=== PATIENT | male | born 1995 | race Caucasian/White ===

== ENCOUNTER 2017-09-10 02:33 | Emergency (ER) | payer SELFPAY ==
[2017-09-10 03:35] LABS: ABSOLUTE BASOPHILS # (AUTO) 0.1 10^3/uL (0.0-0.2); ABSOLUTE EOSINOPHILS # (AUTO) 0.1 10^3/uL (0.0-0.6); ABSOLUTE MONOCYTES (AUTO) 0.9 10^3/uL (0.1-1.4); ABSOLUTE NEUT (AUTO) 16.1 10^3/uL (1.7-8.2); BASOPHILS % (AUTO) 0.4 % (0-2); EOSINOPHILS % (AUTO) 0.6 % (0-6); HEMATOCRIT 39.8 % (37.9-51.0); LYMPHOCYTES % (AUTO) 5.5 % (13-45); MEAN CORPUSCULAR HEMOGLOBIN 31.1 pg (27.0-33.4); MEAN CORPUSCULAR HGB CONC 35.2 g/dL (32.0-36.0); MEAN CORPUSCULAR VOLUME 88 fl (80-97); PLATELET COUNT 170 10^3/uL (150-450); RED BLOOD COUNT 4.51 10^6/uL (4.35-5.55); RED CELL DISTRIBUTION WIDTH 13.7 % (11.5-14.0); SEGMENTED NEUTROPHILS % (AUTO) 88.5 % (42-78); TOTAL CELLS COUNTED % (AUTO) 100 %; WHITE BLOOD COUNT 18.1 10^3/uL (4.0-10.5)
[2017-09-10] MEDS ORDERED: NORMAL SALINE 1000 ML 1,000 ML IV ONE ×2 (03:48)
[2017-09-10 03:53] LABS: ALANINE AMINOTRANSFERASE 28 U/L (21-72); ALBUMIN 4.6 g/dL (3.5-5.0); ALKALINE PHOSPHATASE 56 U/L (38-126); ANION GAP 11 (5-19); ASPARTATE AMINO TRANSFERASE 22 U/L (17-59); BILIRUBIN,DIRECT 0.3 mg/dL (0.0-0.4); BILIRUBIN,TOTAL 0.4 mg/dL (0.2-1.3); BLOOD UREA NITROGEN 11 mg/dL (7-20); CALCIUM 9.6 mg/dL (8.4-10.2); CARBON DIOXIDE 28 mmol/L (22-30); CHLORIDE 106 mmol/L (98-107); GLUCOSE 166 mg/dL (75-110); POTASSIUM 3.2 mmol/L (3.6-5.0); SODIUM 145.1 mmol/L (137-145); TOTAL PROTEIN 7.4 g/dL (6.3-8.2)
[2017-09-10 03:56] LABS: ACETAMINOPHEN < 10 ug/mL (10-30); ALCOHOL < 10 mg/dL (NONE DETECTED); SALICYLATE < 1.0 mg/dL (2.0-20.0)
[2017-09-10 05:00] LABS: APPEARANCE,URINE SLIGHTLY-CLOUDY; BILIRUBIN,URINE NEGATIVE (NEGATIVE); COLOR,URINE YELLOW; GLUCOSE, URINE NEGATIVE (NEGATIVE); KETONES,URINE NEGATIVE (NEGATIVE); LEUKOCYTE ESTERASE,URINE NEGATIVE (NEGATIVE); NITRITE,URINE NEGATIVE (NEGATIVE); PROTEIN,URINE 30 mg/dL (NEGATIVE); URINE SPECIFIC GRAVITY 1.018
[2017-09-10 05:07] LABS: URINE AMPHETAMINES SCREEN NEGATIVE; URINE BARBITURATES SCREEN NEGATIVE; URINE BENZODIAZEPINES SCREEN NEGATIVE; URINE COCAINE SCREEN NEGATIVE; URINE MARIJUANA (THC) SCREEN UNCONFIRMED POSITIVE; URINE METHADONE SCREEN NEGATIVE; URINE PHENCYCLIDINE SCREEN UNCONFIRMED POSITIVE
--- NOTE | 2017-09-10 05:18 | ER Document Report ---
ED General - General TRAVEL OUTSIDE OF THE [place] IN LAST 30 DAYS: No - HPI Patient complains to provider of: Suicide ideation polysubstance abuse <RICARDO AIKEN - Last Filed: 09/10/17 06:02> <THOMAS MCKENNA A - Last Filed: 09/10/17 17:16> - General Chief Complaint: Psych Problem Stated Complaint: PSYCH PROBLEM Time Seen by Provider: 09/10/17 03:21 - HPI Notes: According to the mother at bedside patient has a history of polysubstance abuse and also has making suicidal statements. Mother states that the patient takes multiple illicit substance from PCP heroin opiates and has been looking online researching drugs that are not found on drug screens mother states that she regularly drug screens the patient and the patient's girlfriend. Patient upon initial evaluation was seen rolling to our psychiatric area awake at this time at bedside patient is awake in the painful stimuli however has some intermittent smiles. Mother denies any previous psychiatric evaluation denies any other past medical issues (RICARDO AIKEN) - Related Data Allergies/Adverse Reactions: amoxicillin [Amoxicillin] Allergy (Verified 07/31/12 12:32) Hives Penicillins Allergy (Verified 05/03/13 14:59) Past Medical History - Social History Family History: Reviewed & Not Pertinent Psychiatric Medical History: Reports: Hx Attention Deficit Hyperactivity Disorder - Immunizations Hx Diphtheria, Pertussis, Tetanus Vaccination: Yes <RICARDO AIKEN - Last Filed: 09/10/17 06:02> - Social History Smoking Status: Current Some Day Smoker Family History: Reviewed & Not Pertinent <THOMAS MCKENNA A - Last Filed: 09/10/17 17:16> Review of Systems - Review of Systems -: Yes ROS unobtainable due to patient's medical condition - Intoxicated <RICARDO AIKEN - Last Filed: 09/10/17 06:02> Physical Exam - Vital signs Interpretation: Normal - General General appearance: Appears well, Alert - HEENT Head: Normocephalic, Atraumatic Eyes: Normal Conjunctiva: Normal Cornea: Normal Pupils: Pinpoint - Respiratory Respiratory status: No respiratory distress Chest status: Nontender Breath sounds: Normal Chest palpation: Normal - Cardiovascular Rhythm: Regular Heart sounds: Normal auscultation Murmur: No - Abdominal Inspection: Normal Distension: No distension Bowel sounds: Normal Tenderness: Nontender Organomegaly: No organomegaly - Back Back: Normal, Nontender - Extremities General upper extremity: Normal inspection, Nontender, Normal color, Normal ROM , Normal temperature General lower extremity: Normal inspection, Nontender, Normal color, Normal ROM , Normal temperature, Normal weight bearing. No: Annia's sign - Neurological Neuro grossly intact: Yes Cognition: Normal [place] Coma Scale Eye Opening: To Pain Winnie Coma Scale Verbal: Confused [place] Coma Scale Motor: Localizes to Pain [place] Coma Scale Total: 11 Speech: Normal Motor strength normal: LUE, RUE, LLE, RLE Sensory: Normal - Psychological Associated symptoms: Normal affect, Normal mood - Skin Skin Temperature: Warm Skin Moisture: Dry Skin Color: Normal <RICARDO AIKEN - Last Filed: 09/10/17 06:02> <THOMAS MCKENNA - Last Filed: 09/10/17 17:16> - Vital signs Vitals: Temp Pulse Resp BP Pulse Ox 98.2 F 103 H 18 138/101 H 95 09/10/17 02:43 09/10/17 02:43 09/10/17 02:43 09/10/17 02:43 09/10/17 02:43 - Neurological Notes: Gag reflex intact (RICARDO AIKEN) Course - Laboratory Result Diagrams: 09/10/17 03:12 09/10/17 03:12 <RICARDO AIKEN - Last Filed: 09/10/17 06:02> - Laboratory Result Diagrams: 09/10/17 03:12 09/10/17 03:12 <THOMAS MCKENNA A - Last Filed: 09/10/17 17:16> - Re-evaluation Re-evalutation: 09/10/17 05:16 Patient coming in for suicidal ideation and drug overdose. Patient's vital signs are stable at this time with a gag in place patient does not require any further intervention for airway protection currently waiting on patient to metabolize substances to make up to talk to psychiatric team. 09/10/17 06:02 Patient was resisting the opening up his eyes patient initially did speak his name does admit that he has been taking cough medication. Otherwise laboratory values only showed slightly low potassium. We will replace this orally once patient awakes patient otherwise at this time is cleared by psych. 09/10/17 06:11 GCS he is going to see some people is now 15 (RICARDO AIKEN) 09/10/17 17:14 Patient was evaluated by behavioral health. Will discharge to [facility]. Will write rx for Effexor 37.5mg BID and Buspar 10mg BID per psychiatrist recommendations. (THOMAS MCKENNA) - Vital Signs Vital signs: Temp Pulse Resp BP Pulse Ox 98.2 F 103 H 17 99/65 L 98 09/10/17 02:43 09/10/17 02:43 09/10/17 07:01 09/10/17 07:01 09/10/17 07:01 - Laboratory Laboratory results interpreted by me: 09/10/17 09/10/17 09/10/17 03:12 03:12 04:30 WBC 18.1 H Seg Neutrophils % 88.5 H Lymphocytes % 5.5 L Absolute Neutrophils 16.1 H Sodium 145.1 H Potassium 3.2 L Glucose 166 H Urine Protein 30 H Urine Urobilinogen 4.0 H Salicylates < 1.0 L Acetaminophen < 10 L Critical Care Note - Critical Care Note Total time excluding time spent on procedures (mins): 35 <RICARDO AIKEN - Last Filed: 09/10/17 06:02> <THOMAS MCKENNA - Last Filed: 09/10/17 17:16> - Critical Care Note Comments: Multiple evaluations for drug overdose with low GCS initially GCS now 15 ( RICARDO AIKEN) Discharge <RICARDO AIKEN - Last Filed: 09/10/17 06:02> <THOMAS MCKENNA - Last Filed: 09/10/17 17:16> - Discharge Clinical Impression: Drug overdose, Suicidal ideation, Polysubstance drug abuse Condition: Good Disposition: HOME, SELF-CARE Additional Instructions: You were seen for psychiatric consultation in the Emergency Department for suicidal ideation and substance abuse, and deemed appropriate for discharge. You are being referred to [facility] for assistance in obtaining admittance to a substance abuse detox and for mobile crisis services. You have also been referred to either [facility] or [facility] for senior living treatment and encouraged to contact them today for bed availability. Medication Recommendations: Effexor 37.5 twice per day Buspar 10 mg twice per day DEPRESSION: Your evaluation reveals that you have depression. While symptoms may be vague, they often include disturbance of sleep, fatigue, loss of appetite, and general loss of interest in life. While depression may be a side effect of drugs, or a reaction to a major change in your life, many cases have no known cause. If depression is acute, and related to a major loss in your life, you can expect it to clear completely with time. If you have been depressed a long time , are prone to repeated bouts of depression or low mood, or have been thinking of suicide, get help. Depression can be treated with anti-depressant medication and counselling. Long-term depression will often take a few weeks to clear, even with appropriate medication. Follow-up care is important. SUICIDAL IDEATION: Suicidal ideation is a common medical term for thoughts about suicide, which may be as detailed as a formulated plan, without the suicidal act itself. Although most people who undergo suicidal ideation do not commit suicide, some go on to make suicide attempts. The range of suicidal ideation varies greatly from fleeting to detailed planning, role playing, and unsuccessful attempts. While thoughts about suicide are common, most people do not carry out serious actions to commit suicide. Based upon your evaluation and discussion with you, we do not believe you are currently at risk to act upon your thoughts of suicide. You have agreed to return to the Emergency Department, at any time , if you feel inclined to act upon your suicidal thoughts. COCAINE ABUSE: Cocaine causes many dangerous medical problems. Problems can occur even with "usual" amounts. Cocaine affects judgement, creating a sense of invulnerability. Cocaine users often make bad decisions that seem "great" at the time. Most cocaine users eventually will be hurt by bad job performance, damaged personal relations, crime, and unsafe sexual practices. Toxic effects of cocaine can include seizures, hallucinations, delusions, high blood pressure, heart damage, or sudden . There's always the risk of a "bad batch." But heart attacks, brain hemorrhages, or cardiac arrest can occur unpredictably even with "normal" use. Injection of cocaine is risky for abscesses, endocarditis (heart infection) , pneumonia, and AIDS. Withdrawal from cocaine often causes anxiety and drug cravings. Some users become paranoid and psychotic. Many treatment programs are available, but you must make the decision to quit. Medication can be prescribed to control the symptoms of cocaine toxicity (beta blockers or benzodiazepines). Withdrawal symptoms may require tranquilizers. NARCOTIC / OPIOID ABUSE: Narcotics and opioids are pain-relieving drugs that are often abused. They are addicting. Narcotics cause euphoria, but it often takes increasing amounts to "feel good" and avoid withdrawal symptoms. Overdose of narcotics causes small pupils, coma, and decreased breathing. It's a common cause of . Purity of street narcotics is unpredictable. Injection of narcotics is risky for abscesses, endocarditis (heart infection), pneumonia, and AIDS. Withdrawal from narcotics causes goose bumps, watery mouth, sweating, nasal congestion, muscle aches, abdominal cramps, vomiting, and diarrhea. There 's often restlessness and confusion. Treatment programs are available, but you must make the decision to quit. Medication (such as clonidine) can be prescribed to control the symptoms of withdrawal. AMPHETAMINE / METHAMPHETAMINE ABUSE: Amphetamines are addicting stimulants. Amphetamines overstimulate the nervous system and give a false feeling of power and mastery. These drugs may be obtained as prescription pills for weight loss, narcolepsy, or attention- deficit disorder. More often they're bought as an illegal street drug, methamphetamine (crank, crystal, speed). Using amphetamines repeatedly can lead to serious medical problems including malnutrition, severe depression, and paranoia. It can take increasing amounts to feel good. Eventually, there will be a "burn out." When you go off amphetamines there is a period of depression that may last for weeks or even months. High doses of amphetamines can cause seizures, confusion, hallucinations, delusions, high blood pressure, muscle damage, heart damage, or sudden . Many times these deadly complications occur even with "normal" doses. Injection of amphetamines is risky for developing abscesses, endocarditis ( heart infection), pneumonia, and AIDS. Withdrawal from amphetamines often causes anxiety, depression, and drug cravings. Some users become paranoid and psychotic. There may be cramps, nausea , and vomiting. Many treatment programs are available, but you must make the decision to quit. Medication can be prescribed to control the symptoms of amphetamine toxicity (beta blockers or benzodiazepines). Withdrawal symptoms may require tranquilizers. FOLLOW-UP CARE: If you have been referred to a physician for follow-up care, call the physician s office for an appointment as you were instructed or within the next two days. If you experience worsening or a significant change in your symptoms, notify the physician immediately or return to the Emergency Department at any time for re-evaluation. Prescriptions: Buspirone HCl [Buspar 10 mg Tablet] 10 mg PO BID 7 Days #14 tab Venlafaxine HCl ER [Effexor Xr 37.5 mg Cap.sr] 37.5 mg PO BID 7 Days #14 cap.sr.24h
--- NOTE | 2017-09-10 09:55 | ER Document Report ---
Doctor's Note Notes: 09/10/17 09:53 Patient seen and evaluated by myself for drug overdose and suicidal ideations. Patient's vital signs are stable. He has no complaints at this time. No complaints overnight. Awaiting psych to evaluate the patient.
--- NOTE | 2017-09-10 10:00 | EKG REPORT ---
SEVERITY:- BORDERLINE ECG - SINUS RHYTHM BORDERLINE PROLONGED QT INTERVAL : Confirmed by: Jessica Leblanc 10-Sep-2017 09:59:14
[2017-09-10] MEDS ORDERED: NICOTINE 21 MG/24 HR PATCH.TD24 TD ONE (11:57)
[2017-09-10 18:15] VITALS: BP 124/74
== END 2017-09-10 18:15 | disposition home or self-care (01) ==
LOC: ER 02:33
DX: T50.901A Poisoning by unspecified drugs, medicaments and biological substances, accidental (unintentional), initial encounter (principal); R45.851 Suicidal ideations; F19.10 Other psychoactive substance abuse, uncomplicated; F17.200 Nicotine dependence, unspecified, uncomplicated; Z88.0 Allergy status to penicillin
CPT/HCPCS: 93005; 99285; 96360; 96361; 36415; 80307 ×4; 85025; 80053; 81001; 93010; J7030

== ENCOUNTER 2020-02-09 11:24 | Inpatient (IN) | payer SELFPAY ==
--- NOTE | 2020-02-09 12:09 | ER Document Report ---
ED Medical Screen (RME) - General Chief Complaint: Abdominal Pain Stated Complaint: DIARRHEA Time Seen by Provider: 02/09/20 12:00 Notes: Patient is a 37-year-old male presents emergency department with diarrhea for 10 days. Patient states that the beginning of the 10 days, he had nausea and vomiting. Patient has history of a colostomy when he was little. States that he has pain all over his abdomen. Exam: Tender generalized abdomen. I have greeted and performed a rapid initial assessment of this patient. A comprehensive ED assessment and evaluation of the patient, analysis of test results and completion of medical decision making process will be conducted by an additional ED providers. TRAVEL OUTSIDE OF THE [place] IN LAST 30 DAYS: No - Related Data Allergies/Adverse Reactions: amoxicillin [Amoxicillin] Allergy (Verified 02/09/20 11:58) Hives Penicillins Allergy (Verified 02/09/20 11:58) Past Medical History Renal/ Medical History: Denies: Hx Peritoneal Dialysis Psychiatric Medical History: Reports: Hx Attention Deficit Hyperactivity Disorder - Immunizations Hx Diphtheria, Pertussis, Tetanus Vaccination: Yes Physical Exam - Vital signs Vitals: Temp Pulse Resp BP Pulse Ox 98.3 F 145 H 16 119/72 97 02/09/20 11:42 02/09/20 11:42 02/09/20 11:42 02/09/20 11:42 02/09/20 11:42 Course - Vital Signs Vital signs: Temp Pulse Resp BP Pulse Ox 98.3 F 145 H 16 119/72 97 02/09/20 11:42 02/09/20 11:42 02/09/20 11:42 02/09/20 11:42 02/09/20 11:42
[2020-02-09] MEDS ORDERED: NORMAL SALINE 1000 ML 1,000 ML IV ONE (12:51)
[2020-02-09] MEDS ORDERED: ONDANSETRON HCL INJ/PF 4 MG/2 ML SDV IV ONE (13:03)
[2020-02-09] MEDS ORDERED: DICYCLOMINE HCL 20 MG TABLET PO ONE (13:04)
--- NOTE | 2020-02-09 13:06 | ER Document Report ---
ED GI/ - General Mode of Arrival: Ambulatory Information source: Patient TRAVEL OUTSIDE OF THE [place] IN LAST 30 DAYS: No - HPI Patient complains to provider of: Abdominal pain, Diarrhea. No: Vomiting Onset: Other - 10 days Timing/Duration: Persistent Quality of pain: Cramping Pain Level: 3 Location: Other - Lower abdomen Associated symptoms: Blood in stool - Today small amount, Diarrhea, Loss of appetite, Nausea. denies: Constipation, Vomiting Exacerbated by: Denies Relieved by: Denies Similar symptoms previously: No Recently seen / treated by doctor: No <COLLEEN URIBE - Last Filed: 02/09/20 18:15> <NIGHAT DECKER - Last Filed: 02/10/20 00:20> - General Chief Complaint: Abdominal Pain Stated Complaint: DIARRHEA Time Seen by Provider: 02/09/20 12:00 Notes: Patient presents complaining of diarrhea for the past 10 days. Patient states that he ate a hamburger 10 days ago and after that he has been sick. Patient states that the first day 10 days ago he did vomit once but has not had any vomiting since then. Patient does report nausea since then. Patient denies any fever. Patient states today he did eat some but has had a decreased appetite. Patient denies any fever. (COLLEEN URIBE) - Related Data Allergies/Adverse Reactions: amoxicillin [Amoxicillin] Allergy (Verified 02/09/20 11:58) Hives Penicillins Allergy (Verified 02/09/20 11:58) Past Medical History - General Information source: Patient - Social History Smoking Status: Current Every Day Smoker Frequency of alcohol use: None Drug Abuse: Marijuana Occupation: Construction Family History: Reviewed & Not Pertinent - Medical History Medical History: Other - currarina triad syndrome Renal/ Medical History: Denies: Hx Peritoneal Dialysis Psychiatric Medical History: Reports: Hx Attention Deficit Hyperactivity Disorder Past Surgical History: Reports: Hx Colostomy - Colostomy with reversal, Hx Neurologic Surgery - 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 denies: Fever EENT: No symptoms reported Cardiovascular: No symptoms reported. denies: Chest pain Respiratory: No symptoms reported. denies: Cough, Short of breath Gastrointestinal: Abdominal pain, Diarrhea, Nausea, Blood streaked bowels, Poor appetite, Poor fluid intake. denies: Vomiting, Constipation Genitourinary: No symptoms reported. denies: Dysuria Male Genitourinary: No symptoms reported Musculoskeletal: No symptoms reported. denies: Back pain Skin: No symptoms reported Hematologic/Lymphatic: No symptoms reported Neurological/Psychological: No symptoms reported <MEHDICLAUDINEBOOKER - Last Filed: 02/09/20 18:15> Physical Exam - General General appearance: Alert In distress: Mild - HEENT Head: Normocephalic, Atraumatic Eyes: Normal Conjunctiva: Normal Nasal: Normal Mouth/Lips: Normal Mucous membranes: Dry Neck: Normal, Supple. No: Lymphadenopathy - Respiratory Respiratory status: No respiratory distress Chest status: Nontender Breath sounds: Normal. No: Rales, Rhonchi, Stridor, Wheezing Chest palpation: Normal - Cardiovascular Rhythm: Tachycardia Heart sounds: S1 appreciated, S2 appreciated Murmur: No - Abdominal Inspection: Normal Distension: No distension Bowel sounds: Normal Tenderness: Tender - lower pelvic pain. No: Guarding Organomegaly: No organomegaly - Back Back: Normal, Nontender. No: CVA tenderness - Extremities General upper extremity: Normal inspection, Nontender, Normal ROM General lower extremity: Normal inspection, Nontender, Normal ROM - Neurological Neuro grossly intact: Yes Cognition: Normal [place] Coma Scale Eye Opening: Spontaneous [place] Coma Scale Verbal: Oriented [place] Coma Scale Motor: Obeys Commands Winnie Coma Scale Total: 15 - Psychological Associated symptoms: Normal affect, Normal mood - Skin Skin Temperature: Warm Skin Moisture: Dry Skin Color: Normal <COLLEEN URIBE - Last Filed: 02/09/20 18:15> - Vital signs Vitals: Temp Pulse Resp BP Pulse Ox 98.3 F 145 H 16 119/72 97 02/09/20 11:42 02/09/20 11:42 02/09/20 11:42 02/09/20 11:42 02/09/20 11:42 - General Notes: Ill-appearing (MEHDILORRAINETYREE) Course - Laboratory Result Diagrams: 02/09/20 14:29 02/09/20 17:45 - EKG Interpretation by Il EKG shows normal: Sinus rhythm Rate: Tachycardia <COLLEEN URIBE - Last Filed: 02/09/20 18:15> - Laboratory Result Diagrams: 02/09/20 14:29 02/09/20 17:45 - Diagnostic Test Radiology reviewed: Reports reviewed - EKG Interpretation by Me Rate: Tachycardia - Consults Dr. Alamo Time consulted: 18:44 Consulted provider: will come to ER <NIGHAT DECKER - Last Filed: 02/10/20 00:20> - Re-evaluation Re-evalutation: 02/09/20 14:00 Staff continue to attempt IV access at this time. Patient continues with lower pelvic abdominal pain. No additional vomiting. 02/09/20 15:[address] Alamo regarding patient presentation, Dr. Alamo advised that patient does not have any labs resulted as he has been a difficult stick and staff are still attempting blood draw and IV access. Dr. Alamo did review patient's abdominal imaging. He agrees with plan for CT imaging and advises consulting with any abnormal normal findings on CT scan. 02/09/20 16:00 RN at bedside attempting ultrasound-guided IV access. Patient with lower pelvic abdominal tenderness. Patient does report continued diarrhea stools. 02/09/20 17:44 Dr. Borges to bedside was able to obtain IV access. Blood samples collected. 02/09/20 18:14 Report and handoff given to Randa Bloom BREAD BAKER (COLLEEN URIBE) 02/09/20 18:14 Report received from outgoing nurse practitioner Carolin Uribe. 02/09/20 18:46 On-call general surgery Dr. Alamo reviewing CT scan. Wants NG tube. Rapid Covid. Will see patient in the emergency room. Patient is aware of need for NG tube. Patient is ill-appearing. Moderate distress noted. 02/09/20 19:18 Patient was seen and evaluated by general surgeon Dr. Alamo who is agreeable to admit patient to his service. No immediate plans for surgical intervention. Patient had large bowel movement. Dr. Alamo no longer wants NG tube. Blood cultures and IV antibiotics have been ordered. Dr. Alamo is agreeable with the plan of care. And accepts admission. 02/09/20 19:22 02/10/20 00:17 (WELLEN,SHERYLE D) - Vital Signs Vital signs: Temp Pulse Resp BP Pulse Ox 98.4 F 103 H 18 109/68 94 02/09/20 19:30 02/09/20 19:30 02/09/20 19:30 02/09/20 19:30 02/09/20 19:30 - Laboratory Laboratory results interpreted by me: 02/09/20 02/09/20 02/09/20 14:29 17:45 19:10 WBC 26.8 H RBC 5.73 H Hgb 18.2 H Hct 51.2 H Seg Neuts % (Manual) 80 H Lymphocytes % (Manual) 12 L Abs Neuts (Manual) 21.4 H Abs Monocytes (Manual) 2.1 H Sodium 123.7 L Potassium 3.4 L Chloride 79 L ALT 62 H Alkaline Phosphatase 143 H Urine Urobilinogen 2.0 H Urine Ascorbic Acid 40 H - EKG Interpretation by Me Additional EKG results interpreted by me: 02/09/20 13:27 Sinus tachycardia with a rate of 118, QTc 432, no acute ischemic changes (COLLEEN URIBE) 02/09/20 18:45 EKG was interpreted by ER physician Dr. Ren No acute STEMI Sinus tachycardia Rate of 118 Probable left atrial abnormality Borderline left axis deviation No previous EKGs for comparison. (NIGHAT DECKER) Discharge <COLLEEN URIBE - Last Filed: 02/09/20 18:15> - Discharge Admitting Provider: Surgicalist Unit Admitted: Surgical Floor <NIGHAT DECKER - Last Filed: 02/10/20 00:20> - Discharge Clinical Impression: Colitis Leukocytosis Qualifiers: Leukocytosis type: other Qualified Code(s): D72.828 - Other elevated white blood cell count Condition: Stable Disposition: ADMITTED INPATIENT
--- NOTE | 2020-02-09 13:46 | RADIOLOGY REPORT (SQ) ---
EXAM DESCRIPTION: KUB/ABDOMEN (SINGLE VIEW) IMAGES COMPLETED DATE/TIME: 02/09/2020 1:25 pm REASON FOR STUDY: abd pain COMPARISON: None. NUMBER OF VIEWS: One view. TECHNIQUE: Supine radiographic image of the abdomen acquired. LIMITATIONS: None. FINDINGS: BOWEL GAS PATTERN: Multiple dilated bowel loops, largely appear to be colon measuring up t o 10 cm in the splenic flexure. The descending colon appears smoothly contoured which is abnormal. CALCIFICATIONS: No suspicious calcifications. SOFT TISSUES: No gross mass or suggestion of organomegaly. HARDWARE: Surgical clips in the deep pelvis. BONES: No acute fracture. No worrisome bone lesions. OTHER: No other significant finding. IMPRESSION: Multiple dilated bowel loops, largely appear to be colon measuring up to 10 cm in the sp lenic flexure. The descending colon appears smoothly contoured which is abnormal. Consider surgical consultation and CT evaluation. TECHNICAL DOCUMENTATION: JOB ID: [id number] [id number] 2010 [employer]- All Rights Reserved Reading location - IP/workstation name: [email or web address]
[2020-02-09 14:52] LABS: HEMATOCRIT 51.2 % (37.9-51.0); HEMOGLOBIN 18.2 g/dL (13.5-17.0); MEAN CORPUSCULAR HEMOGLOBIN 31.8 pg (27.0-33.4); MEAN CORPUSCULAR HGB CONC 35.6 g/dL (32.0-36.0); MEAN CORPUSCULAR VOLUME 89 fl (80-97); PLATELET COUNT 376 10^3/uL (150-450); RED BLOOD COUNT 5.73 10^6/uL (4.35-5.55); RED CELL DISTRIBUTION WIDTH 13.7 % (11.5-14.0); WHITE BLOOD COUNT 26.8 10^3/uL (4.0-10.5)
[2020-02-09 15:30] LABS: ABSOLUTE LYMPHOCYTES# (MANUAL) 3.2 10^3/uL (0.5-4.7); ABSOLUTE MONOCYTES # (MANUAL) 2.1 10^3/uL (0.1-1.4); BASOPHILS % (MANUAL) 0 % (0-2); EOSINOPHILS % (MANUAL) 0 % (0-6); LYMPHOCYTES % (MANUAL) 12 % (13-45); MONOCYTES % (MANUAL) 8 % (3-13); SEGMENTED NEUTROPHILS % (MAN) 80 % (42-78); TOTAL CELLS COUNTED 100
[2020-02-09 15:31] LABS: PLATELET CLUMPS PRESENT; PLATELET COMMENT ADEQUATE; RBC MORPHOLOGY COMMENT NORMO-CYTIC/CHROMIC
[2020-02-09] MEDS ORDERED: NICOTINE 21 MG/24 HR PATCH.TD24 TD ONE (17:35)
--- NOTE | 2020-02-09 17:37 | ER Document Report ---
Doctor's Note Notes: 20-gauge IV placed into left antecubital fossa using ultrasound guidance. Blood return easily. Line secured. Sterile precautions used. Patient tolerated well.
[2020-02-09] MEDS ORDERED: AZTREONAM INJ 1 GM VIAL IV ONE (18:26)
[2020-02-09 18:37] LABS: ALKALINE PHOSPHATASE 143 U/L (38-126); ANION GAP 15 (5-19); ASPARTATE AMINO TRANSFERASE 56 U/L (17-59); BILIRUBIN,DIRECT 0.1 mg/dL (0.0-0.4); BILIRUBIN,TOTAL 0.5 mg/dL (0.2-1.3); BLOOD UREA NITROGEN 9 mg/dL (7-20); CALCIUM 9.4 mg/dL (8.4-10.2); CARBON DIOXIDE 30 mmol/L (22-30); CHLORIDE 79 mmol/L (98-107); GLUCOSE 93 mg/dL (75-110); POTASSIUM 3.4 mmol/L (3.6-5.0); TOTAL PROTEIN 7.3 g/dL (6.3-8.2)
--- NOTE | 2020-02-09 18:44 | RADIOLOGY REPORT (SQ) ---
EXAM DESCRIPTION: CT ABD/PELVIS WITH IV ORAL IMAGES COMPLETED DATE/TIME: 02/09/2020 6:22 pm REASON FOR STUDY: abd pain COMPARISON: None. TECHNIQUE: CT scan of the abdomen and pelvis performed without intravenous. Oral contrast was admin istered. Images reviewed with lung, soft tissue, and bone windows. Reconstructed coronal and sagittal MPR images reviewed. All images stored on PACS. All CT scanners at this facility use dose modulation, iterative reconstruction, and/or weight based d osing when appropriate to reduce radiation dose to as low as reasonably achievable (ALARA). [facility]: Dose Right [facility]: CareDose [facility]: Dose Right [facility]: Teradose 4D [facility]: Smart Food [employer] Bever[employer] RADIATION DOSE: CT Rad equipment meets quality standard of care and radiation dose reduction techniq ues were employed. CTDIvol: 4.8 - 5.3 mGy. DLP: 586 mGy-cm.mGy. LIMITATIONS: None. FINDINGS: LOWER CHEST: No significant findings. No nodules or infiltrates. NON-CONTRASTED LIVER, SPLEEN, ADRENALS: Evaluation limited by lack of IV contrast. No identified sign ificant masses. PANCREAS: No masses. No peripancreatic inflammatory changes. GALLBLADDER: No calcified stones. No inflammatory changes to suggest cholecystitis. RIGHT KIDNEY AND URETER: No cysts identified. No solid masses. No calcified stones. No hydronephrosis or hydroureter. LEFT KIDNEY AND URETER: No cysts identified. No solid masses. No calcified stones. No hydronephrosis or hydroureter. AORTA AND RETROPERITONEUM: No aneurysm. Scattered small retroperitoneal lymph nodes. BOWEL AND PERITONEAL CAVITY: Moderate wall thickening throughout the descending and sigmoid colon ian suring up to 1 cm. The proximal colon is dilated measuring up to 11 cm in diameter. No small bowel dilatation or wall thickening. APPENDIX: Normal. PELVIS, BLADDER, AND ABDOMINAL WALL:Surgical clips in the presacral -perirectal fossa soft tissue. . No free fluid. Distended bladder. BONES: No acute findings. OTHER: No other significant finding. IMPRESSION: Moderate wall thickening throughout the descending and sigmoid colon measuring up to 1 c m. The proximal colon is dilated measuring up to 11 cm in diameter. No small bowel dilatation or wa ll thickening. No free fluid. TECHNICAL DOCUMENTATION: JOB ID: [id number] Quality ID # [id number]: Final reports with documentation of one or more dose reduction techniques (e.g., Au tomated exposure control, adjustment of the mA and/or kV according to patient size, use of iterative reconstruction technique) 2010 [employer]- All Rights Reserved Reading location - IP/workstation name: [email or web address]
[2020-02-09] MEDS ORDERED: ONDANSETRON HCL INJ/PF 4 MG/2 ML SDV IV PRN (19:19)
--- NOTE | 2020-02-09 19:30 | PDOC H&P ---
History of Present Illness Patient complains of: Abdominal pain, bloating, nausea vomiting and diarrhea bloody stools History of Present Illness: SIMON CHRIS is a 24 year old male Presents emergency department with a 10-day history of abdominal pain bloating, nausea vomiting diarrhea or bloody stools. He denies previous episodes. Patient has a remote history of congenital spinal deformity, meningocele, ostomy and colostomy takedown performed at [facility]. Patient has had intermittent problems with constipation alternating with diarrhea over the last several years. He denies colonoscopy as an adult. He seen in the emergency department was found to have abdominal distention with bloating, nonlocalized abdominal tenderness, leukocytosis of 26,000, and acute abdominal series showing gas in the small and large bowel with luminal dilatation. CT scan of the abdomen limited oral contrast shows colonic wall thickening involving the descending and sigmoid colon. No free air no intra-abdominal fluid. Surgery was consulted, patient advised admission for further hydration, stool evaluation, and IV antibiotic therapy Past Medical History Past Medical History: History of IV drug abuse in the past, suicidal ideation, ADD, smoker Psychiatric Medical History: Reports: Attention Deficit Hyperactivity Disorder Past Surgical History Past Surgical History: History of spinal surgery as an , colostomy and colostomy takedown Past Surgical History: Reports: Colostomy - Colostomy with reversal Social History Information Source: Patient Smoking Status: Current Every Day Smoker Past Social History Note: History of IV drug abuse; denies currently Family History Family History: None, Reviewed & Not Pertinent Parental Family History Reviewed: No Children Family History Reviewed: No Sibling(s) Family History Reviewed.: No Medication/Allergy Home Medications: Oxycodone HCl/Acetaminophen [Percocet 5-325 mg Tablet] 1 - 2 tab PO Q4H PRN #15 tablet 07/31/12 Erythromycin Base [Erythromycin] 250 mg PO QID #120 tablet 05/03/13 Promethazine HCl [Phenergan 25 mg Tablet] 25 - 50 mg PO ASDIR PRN #12 tablet 05/03/13 Buspirone HCl [Buspar 10 mg Tablet] 10 mg PO BID 7 Days #14 tab 09/10/17 Venlafaxine HCl ER [Effexor Xr 37.5 mg Cap.sr] 37.5 mg PO BID 7 Days #14 cap.sr.24h 09/10/17 Allergies/Adverse Reactions: amoxicillin [Amoxicillin] Allergy (Verified 11/21/20 11:58) Hives Penicillins Allergy (Verified 02/09/20 11:58) Review of Systems Constitutional: PRESENT: as per HPI Eyes: ABSENT: visual disturbances Ears: ABSENT: hearing changes Nose, Mouth, and Throat: PRESENT: other - Poor dentition Gastrointestinal: PRESENT: as per HPI, other - History of fluctuating diarrhea with constipation Physical Exam Vital Signs: Temp Pulse Resp BP Pulse Ox 98.3 F 145 H 16 119/72 97 02/09/20 11:42 02/09/20 11:42 02/09/20 11:42 02/09/20 11:42 02/09/20 11:42 Intake & Output 02/08/20 02/09/20 02/10/20 06:59 06:59 06:59 Weight 63.5 kg General appearance: PRESENT: mild distress, other - Patient walked in from the bathroom to examination room Eye exam: PRESENT: EOMI Ear exam: PRESENT: normal external ear exam Teeth exam: PRESENT: other - Poor dentition Neck exam: PRESENT: full ROM Respiratory exam: PRESENT: rhonchi Cardiovascular exam: PRESENT: RRR Pulses: PRESENT: normal carotid pulses, normal radial pulses, normal femoral pulses GI/Abdominal exam: PRESENT: diminished bowel sounds, other - Lower transverse pelvic scar consistent with previous surgery. No hernia. Abdomen slightly distended, but no peritoneal signs no rigidity. Rectal exam: PRESENT: other - Offered to perform rectal exam patient declined Musculoskeletal exam: PRESENT: full ROM Neurological exam: PRESENT: oriented to person, oriented to place, oriented to time, oriented to situation Psychiatric exam: PRESENT: appropriate affect Skin exam: PRESENT: dry Results Laboratory Results: 02/09/20 14:29 02/09/20 17:45 02/09/20 02/09/20 14:29 17:45 WBC 26.8 H RBC 5.73 H Hgb 18.2 H Hct 51.2 H MCV 89 MCH 31.8 MCHC 35.6 RDW 13.7 Plt Count 376 Seg Neutrophils % Not Reportable Sodium 123.7 L Potassium 3.4 L Chloride 79 L Carbon Dioxide 30 Anion Gap 15 BUN 9 Creatinine 0.52 Est GFR ( Amer) > 60 Glucose 93 Calcium 9.4 Total Bilirubin 0.5 AST 56 Alkaline Phosphatase 143 H Total Protein 7.3 Albumin 4.0 Lipase 78.4 Impressions: KUB X-Ray 02/09/20 13:03 IMPRESSION: Multiple dilated bowel loops, largely appear to be colon measuring up to 10 cm in the splenic flexure. The descending colon appears smoothly contoured which is abnormal. Consider surgical consultation and CT evaluation. Abdomen/Pelvis CT 02/09/20 17:30 IMPRESSION: Moderate wall thickening throughout the descending and sigmoid colon measuring up to 1 cm. The proximal colon is dilated measuring up to 11 cm in diameter. No small bowel dilatation or wall thickening. No free fluid. Assessment & Plan - Diagnosis (1) Colitis Is this a current diagnosis for this admission?: Yes Plan: Pression: Acute colitis based on clinical history physical exam findings, and CT scan demonstrating a thickened descending and sigmoid colon wall. Patient initially hemodynamically unstable, now improved with hydration. No clinical evidence of acute abdomen requiring emergent surgical intervention Recommendations:. 1. Admit, n.p.o., hold off on nasogastric decompression as patient feels better; no indication for acute exploration at this time 2. Empiric antibiotic therapy; await stool cultures, rapid Covid test 3. Patient may require colonoscopic evaluation after acute symptoms subside. (2) Smoker Is this a current diagnosis for this admission?: Yes (3) History of intravenous drug abuse Is this a current diagnosis for this admission?: Yes (4) Diarrhea Is this a current diagnosis for this admission?: Yes (5) Dehydration Is this a current diagnosis for this admission?: Yes (6) Leukocytosis Qualifiers: Leukocytosis type: other Qualified Code(s): D72.828 - Other elevated white blood cell count Is this a current diagnosis for this admission?: Yes - Time Time Spent: 50 to 70 Minutes Critical Time spent with patient: Less than 15 minutes Smoking Cessation Education: 3 to 10 minutes Anticipated Discharge Disposition: Home, Self Care Anticipated Discharge Timeframe: within 48 hours
[2020-02-09] MEDS ORDERED: AZTREONAM INJ 1 GM VIAL IV SCH (19:45)
[2020-02-09 20:08] LABS: APPEARANCE,URINE CLEAR; BILIRUBIN,URINE NEGATIVE (NEGATIVE); COLOR,URINE YELLOW; GLUCOSE, URINE NEGATIVE (NEGATIVE); KETONES,URINE NEGATIVE (NEGATIVE); LEUKOCYTE ESTERASE,URINE NEGATIVE (NEGATIVE); NITRITE,URINE NEGATIVE (NEGATIVE); PROTEIN,URINE NEGATIVE (NEGATIVE); URINE SPECIFIC GRAVITY 1.013
[2020-02-09 20:22] LABS: URINE AMPHETAMINES SCREEN NEGATIVE; URINE BARBITURATES SCREEN NEGATIVE; URINE BENZODIAZEPINES SCREEN NEGATIVE; URINE COCAINE SCREEN NEGATIVE; URINE METHADONE SCREEN NEGATIVE; URINE PHENCYCLIDINE SCREEN NEGATIVE
[2020-02-09 20:23] LABS: URINE MARIJUANA (THC) SCREEN UNCONFIRMED POSITIVE
--- NOTE | 2020-02-09 21:01 | EKG REPORT ---
SEVERITY:- ABNORMAL ECG - SINUS TACHYCARDIA PROBABLE LEFT ATRIAL ABNORMALITY BORDERLINE LEFT AXIS DEVIATION INFERIOR Q WAVES, PROBABLY NORMAL VARIATION : Confirmed by: Shirin Hernandez MD 09-Feb-2020 21:01:05
--- NOTE | 2020-02-09 21:27 | ER Document Report ---
Doctor's Note Notes: 02/09/20 21:25 PROCEDURE NOTE: IV access Indication no peripheral access available This MD prep the patient's left external jugular with ChloraPrep. I was able to insert a 18-gauge peripheral IV line into the patient's left jugular. There was positive blood return, blood was easily aspirated and the line flushed easily. Patient tolerated the procedure well.
[2020-02-09] MEDS: RINGERS SOLUTION,LACTATED 1,000 ML IV PRN (22:27)
[2020-02-09] MEDS ORDERED: AZTREONAM INJ 1 GM VIAL ONE (22:56)
[2020-02-09] MEDS: AZTREONAM 1 GM in DEXTROSE 5%-WATER 50 ML IV SCH (23:50)
[2020-02-10 03:10] LABS: C DIFFICILE GDH NEGATIVE (NEGATIVE)
[2020-02-10] MEDS ORDERED: AZTREONAM INJ 1 GM VIAL ONE (04:19)
[2020-02-10] MEDS: AZTREONAM 1 GM in DEXTROSE 5%-WATER 50 ML IV SCH (06:02)
[2020-02-10] MEDS: RINGERS SOLUTION,LACTATED 1,000 ML IV PRN (06:46)
--- NOTE | 2020-02-10 09:49 | PDOC PROGRESS REPORT ---
Subjective Date:: 02/10/20 Reason For Visit: SMALL BOWEL OBSTRUCTION/LEUKOCYTOSIS Patient feels much better, had 2 diarrhea BMs with blood last night. Pulled out his IV again. No labs drawn this morning. Physical Exam Vital Signs: Temp Pulse Resp BP Pulse Ox 98.4 F 93 16 139/84 H 92 02/10/20 08:04 02/09/20 23:29 02/09/20 23:29 02/09/20 23:29 02/09/20 23:29 Intake & Output 02/09/20 02/10/20 02/11/20 06:59 06:59 06:59 Intake Total 2250 Balance 2250 Weight 63.5 kg General appearance: PRESENT: no acute distress GI/Abdominal exam: PRESENT: other - Abdomen is soft, not distended no peritoneal signs no rigidity. Results Laboratory Results: 02/09/20 14:29 02/09/20 17:45 02/09/20 02/09/20 02/09/20 14:29 17:45 19:10 WBC 26.8 H RBC 5.73 H Hgb 18.2 H Hct 51.2 H MCV 89 MCH 31.8 MCHC 35.6 RDW 13.7 Plt Count 376 Seg Neutrophils % Not Reportable Sodium 123.7 L Potassium 3.4 L Chloride 79 L Carbon Dioxide 30 Anion Gap 15 BUN 9 Creatinine 0.52 Est GFR ( Amer) > 60 Glucose 93 Calcium 9.4 Total Bilirubin 0.5 AST 56 Alkaline Phosphatase 143 H Total Protein 7.3 Albumin 4.0 Lipase 78.4 Urine Color YELLOW Urine Appearance CLEAR Urine pH 6.0 Ur Specific Cushing 1.013 Urine Protein NEGATIVE Urine Glucose (UA) NEGATIVE Urine Ketones NEGATIVE Urine Blood NEGATIVE Urine Nitrite NEGATIVE Ur Leukocyte Esterase NEGATIVE Urine WBC (Auto) 7 Urine RBC (Auto) 0 Impressions: KUB X-Ray 02/09/20 13:03 IMPRESSION: Multiple dilated bowel loops, largely appear to be colon measuring up to 10 cm in the splenic flexure. The descending colon appears smoothly contoured which is abnormal. Consider surgical consultation and CT evaluation. Abdomen/Pelvis CT 02/09/20 17:30 IMPRESSION: Moderate wall thickening throughout the descending and sigmoid colon measuring up to 1 cm. The proximal colon is dilated measuring up to 11 cm in diameter. No small bowel dilatation or wall thickening. No free fluid. Assessment & Plan - Diagnosis (1) Colitis Is this a current diagnosis for this admission?: Yes Plan: Impression: Clinically improved with virtually no abdominal pain, benign abdomen, and less frequent stools; microbiologic analysis of stool pending. Patient is C. difficile negative, RSV negative, influenza A and influenza B ne gative and Covid negative Recommendations: 1. Will encourage p.o. diet; patient has lost multiple IVs in less than 18 hours. He has for peripheral access due to history of IV drug abuse. His cl inical improvement, I am holding off on installing a central venous access catheter. 2. Check labs this morning. If patient continues to improve, anticipate discharge home later today. (2) Smoker Is this a current diagnosis for this admission?: Yes (3) History of intravenous drug abuse Is this a current diagnosis for this admission?: Yes (4) Diarrhea Qualifiers: Diarrhea type: unspecified type Qualified Code(s): R19.7 - Diarrhea, unspecified Is this a current diagnosis for this admission?: Yes (5) Dehydration Is this a current diagnosis for this admission?: Yes (6) Leukocytosis Qualifiers: Leukocytosis type: other Qualified Code(s): D72.828 - Other elevated white blood cell count Is this a current diagnosis for this admission?: Yes - Time Anticipated Discharge Disposition: Home, Self Care Anticipated Discharge Timeframe: within 24 hours
[2020-02-10] MEDS: METRONIDAZOLE 500 MG TABLET PO SCH ×2 (13:12→21:13)
[2020-02-11] MEDS: METRONIDAZOLE 500 MG TABLET PO SCH ×3 (05:48→22:31)
--- NOTE | 2020-02-11 09:15 | RADIOLOGY REPORT (SQ) ---
EXAM DESCRIPTION: KUB/ABDOMEN (SINGLE VIEW) IMAGES COMPLETED DATE/TIME: 02/11/2020 8:56 am REASON FOR STUDY: abdominal distention COMPARISON: 02/09/2020, CT dated 02/09/2020 NUMBER OF VIEWS: One view. TECHNIQUE: Supine radiographic image of the abdomen acquired. LIMITATIONS: None. FINDINGS: BOWEL GAS PATTERN: Persistent diffuse colonic and gastric distention. Mild small-bowel di stention. There is been a slight decrease in the amount of colonic distention since prior study. CALCIFICATIONS: No suspicious calcifications. SOFT TISSUES: No gross mass or suggestion of organomegaly. HARDWARE: None in the abdomen. BONES: No acute fracture. No worrisome bone lesions. OTHER: No other significant finding. IMPRESSION: Persisting colonic distention but improved when compared to prior study. TECHNICAL DOCUMENTATION: JOB ID: [id number] 2010 [employer]- All Rights Reserved Reading location - IP/workstation name: [email or web address]
[2020-02-11 10:01] LABS: HEMATOCRIT 43.2 % (37.9-51.0); MEAN CORPUSCULAR HGB CONC 34.6 g/dL (32.0-36.0); MEAN CORPUSCULAR VOLUME 90 fl (80-97); PLATELET COUNT 294 10^3/uL (150-450); RED BLOOD COUNT 4.83 10^6/uL (4.35-5.55); RED CELL DISTRIBUTION WIDTH 13.8 % (11.5-14.0)
[2020-02-11 10:08] LABS: ALBUMIN 3.3 g/dL (3.5-5.0); ALKALINE PHOSPHATASE 95 U/L (38-126); ANION GAP 9 (5-19); ASPARTATE AMINO TRANSFERASE 47 U/L (17-59); BILIRUBIN,DIRECT 0.1 mg/dL (0.0-0.4); BILIRUBIN,TOTAL 0.4 mg/dL (0.2-1.3); BLOOD UREA NITROGEN 4 mg/dL (7-20); CALCIUM 8.5 mg/dL (8.4-10.2); CARBON DIOXIDE 27 mmol/L (22-30); CHLORIDE 91 mmol/L (98-107); GLUCOSE 84 mg/dL (75-110); POTASSIUM 4.2 mmol/L (3.6-5.0); TOTAL PROTEIN 6.1 g/dL (6.3-8.2)
[2020-02-11 10:19] LABS: ABSOLUTE LYMPHOCYTES# (MANUAL) 4.8 10^3/uL (0.5-4.7); ABSOLUTE MONOCYTES # (MANUAL) 1.1 10^3/uL (0.1-1.4); BAND NEUTROPHILS % (MANUAL) 1 % (3-5); BASOPHILS % (MANUAL) 0 % (0-2); EOSINOPHILS % (MANUAL) 2 % (0-6); LYMPHOCYTES % (MANUAL) 32 % (13-45); MONOCYTES % (MANUAL) 7 % (3-13); SEGMENTED NEUTROPHILS % (MAN) 58 % (42-78); TOTAL CELLS COUNTED 100
[2020-02-11 10:20] LABS: PLATELET COMMENT ADEQUATE; RBC MORPHOLOGY COMMENT NORMO-CYTIC/CHROMIC
--- NOTE | 2020-02-11 16:38 | PDOC PROGRESS REPORT ---
Subjective Date:: 02/11/20 Subjective:: 24-year-old male with a long history of colonic inertia. He continues to compla in of abdominal cramping, abdominal bloating, diarrhea, and abdominal pain. He denies fevers or chills. He denies recent hematochezia, although he experienced hematochezia immediately prior to admission. He denies chest pain, shortness of breath, headache, dizziness, orthostasis, malaise, or fatigue. Reason For Visit: DEHYDRATION,LEUKOCYTOSIS,COLITIS Physical Exam Vital Signs: Temp Pulse Resp BP Pulse Ox 98.6 F 108 H 17 122/67 96 02/11/20 11:37 02/11/20 11:37 02/11/20 11:37 02/11/20 11:37 02/11/20 11:37 Intake & Output 02/10/20 02/11/20 02/12/20 06:59 06:59 06:59 Intake Total 2250 2868 800 Balance 2250 2868 800 Weight 63.5 kg 63.5 kg General appearance: PRESENT: no acute distress, cooperative Head exam: PRESENT: atraumatic, normocephalic Eye exam: PRESENT: EOMI, PERRLA. ABSENT: scleral icterus Mouth exam: PRESENT: moist, neck supple Neck exam: ABSENT: meningismus, tenderness, thyromegaly, tracheal deviation Respiratory exam: PRESENT: unlabored. ABSENT: tachypnea, wheezes Cardiovascular exam: ABSENT: tachycardia GI/Abdominal exam: PRESENT: soft. ABSENT: distended, rebound, rigid, tenderness Rectal exam: PRESENT: deferred Extremities exam: ABSENT: clubbing Musculoskeletal exam: ABSENT: deformity Neurological exam: PRESENT: alert, awake, oriented to person, oriented to place, oriented to time, oriented to situation Psychiatric exam: ABSENT: agitated, anxious, depressed Focused psych exam: ABSENT: delusional Skin exam: ABSENT: cyanosis, erythema, jaundice Results Laboratory Results: 02/11/20 09:30 02/11/20 09:30 02/11/20 02/11/20 09:30 09:30 WBC 15.0 H RBC 4.83 Hgb 15.0 D Hct 43.2 MCV 90 MCH 31.0 MCHC 34.6 RDW 13.8 Plt Count 294 Seg Neutrophils % Not Reportable Sodium 127.3 L Potassium 4.2 Chloride 91 L Carbon Dioxide 27 Anion Gap 9 BUN 4 L Creatinine 0.46 L Est GFR ( Amer) > 60 Glucose 84 Calcium 8.5 Total Bilirubin 0.4 AST 47 Alkaline Phosphatase 95 Total Protein 6.1 L Albumin 3.3 L 02/09/20 19:10 Stool - Stool - Final Impressions: Abdomen/Pelvis CT 02/09/20 17:30 IMPRESSION: Moderate wall thickening throughout the descending and sigmoid colon measuring up to 1 cm. The proximal colon is dilated measuring up to 11 cm in diameter. No small bowel dilatation or wall thickening. No free fluid. KUB X-Ray 02/11/20 00:00 IMPRESSION: Persisting colonic distention but improved when compared to prior study. Assessment & Plan - Diagnosis (1) Colonic inertia Is this a current diagnosis for this admission?: Yes (2) Colitis Is this a current diagnosis for this admission?: Yes - Time Anticipated Discharge Disposition: Home, Self Care Anticipated Discharge Timeframe: within 48 hours - Plan Summary Plan Summary: 24-year-old male with a history of colonic inertia. He now reports hematochezia, abdominal pain, and an elevated white count. He was placed on Flagyl. I will add Levaquin, to cover gram-negative bacteria. He has thickening of his sigmoid colon on CT scan, that is nonspecific. He may be experiencing some form of colitis (inflammatory bowel disease versus infectious colitis). Patient will need continued antibiotics, supportive care, and I recommend a colonoscopy 6 to 8 weeks after recovery. The patient has expressed understanding. I have reviewed his x-rays today (images and reports). He continues to have colonic dilation. The patient has a long history of inertia of the colon, with difficulty emptying. 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 I have discussed treatment options with him at length. I have discussed colectomy versus colostomy as a surgical approach to deal with his chronic constipation and megacolon. The patient has declined any surgical intervention at this time. I will continue with supportive care. Continue with Levaquin and Flagyl. Advance diet. Hopefully, if the patient improves overnight he can be discharged home tomorrow.
[2020-02-11] MEDS: NICOTINE 21 MG/24 HR PATCH.TD24 TD SCH (17:03)
[2020-02-11] MEDS ORDERED: LEVOFLOXACIN 500 MG TABLET PO ONE (18:00)
[2020-02-11] MEDS ORDERED: DIPHENHYDRAMINE HCL 50 MG CAPSULE PO ONE (23:45)
[2020-02-11] MEDS ORDERED: DIPHENHYDRAMINE HCL 50 MG/ML VIAL IV ONE (23:45)
[2020-02-12] MEDS: METRONIDAZOLE 500 MG TABLET PO SCH (07:04)
[2020-02-12] MEDS: NICOTINE 21 MG/24 HR PATCH.TD24 TD SCH (09:03)
[2020-02-12] MEDS ORDERED: LEVOFLOXACIN 500 MG TABLET PO SCH (10:00)
--- NOTE | 2020-02-12 10:39 | PDOC PROGRESS REPORT ---
Subjective Reason For Visit: DEHYDRATION,LEUKOCYTOSIS,COLITIS Patient having less bloody stools, still having some diarrhea and bloating Physical Exam Vital Signs: Temp Pulse Resp BP Pulse Ox 97.8 F 86 16 107/59 L 95 02/12/20 09:39 02/12/20 07:43 02/12/20 07:43 02/12/20 07:43 02/12/20 07:43 Intake & Output 02/11/20 02/12/20 02/13/20 06:59 06:59 06:59 Intake Total 2868 2880 Balance 2868 2880 Weight 63.5 kg 63.5 kg General appearance: PRESENT: other - Patient disheveled; room reeks of cannabis GI/Abdominal exam: PRESENT: other - Abdomen is soft, no peritoneal signs no rigidity. Focused psych exam: PRESENT: other - Patient very somnolent Results Laboratory Results: 02/11/20 09:30 02/11/20 09:30 02/09/20 19:10 Stool - Stool - Final 02/09/20 19:10 Stool - Stool Stool Culture - Final NO SALMONELLA, SHIGELLA, CAMPYLOBACTER, OR E.COLI 0157 RECOVERED. NEGATIVE FOR SHIGA TOXINS 1&2. Impressions: Abdomen/Pelvis CT 02/09/20 17:30 IMPRESSION: Moderate wall thickening throughout the descending and sigmoid colon measuring up to 1 cm. The proximal colon is dilated measuring up to 11 cm in diameter. No small bowel dilatation or wall thickening. No free fluid. KUB X-Ray 02/11/20 00:00 IMPRESSION: Persisting colonic distention but improved when compared to prior study. Assessment & Plan - Diagnosis (1) Colitis Is this a current diagnosis for this admission?: Yes Plan: Impression: Clinically improved based on terms, and physical exam, as well as declining leukocytosis. Acute abdominal series yesterday showed persisting colonic dilatation, however improved compared to admission. Recommendations: 1. Several surgeons have discussed with patient the need for further work-up including colonoscopy, on an outpatient basis complete the comprehensive colonic evaluation. To date patient's serial and viral titers have been negative. 2. I believe patient can be discharged home, I may modified liquid, semisolid diet, and continue p.o. Flagyl. Prescription written today. 3. Patient can follow-up with [facility] in [address] Santana. (2) Smoker Is this a current diagnosis for this admission?: Yes (3) History of intravenous drug abuse Is this a current diagnosis for this admission?: Yes (4) Diarrhea Qualifiers: Diarrhea type: unspecified type Qualified Code(s): R19.7 - Diarrhea, unspecified Is this a current diagnosis for this admission?: Yes (5) Dehydration Is this a current diagnosis for this admission?: Yes (6) Leukocytosis Qualifiers: Leukocytosis type: other Qualified Code(s): D72.828 - Other elevated white blood cell count Is this a current diagnosis for this admission?: Yes - Time Anticipated Discharge Disposition: Home, Self Care Anticipated Discharge Timeframe: within 24 hours Critical Time spent with patient: Less than 15 minutes Smoking Cessation Education: 3 to 10 minutes Medications reviewed and adjusted accordingly: Yes
--- NOTE | 2020-02-12 10:45 | PDOC TRANSFER SUMMARY ---
Impression - Admit/DC Date/PCP Admission Date/Primary Care Provider: 02/09/20 19:34 Discharge Date: 02/12/20 - Discharge Diagnosis (1) Colitis Is this a current diagnosis for this admission?: Yes (2) Smoker Is this a current diagnosis for this admission?: Yes (3) History of intravenous drug abuse Is this a current diagnosis for this admission?: Yes (4) Diarrhea Is this a current diagnosis for this admission?: Yes (5) Dehydration Is this a current diagnosis for this admission?: Yes (6) Leukocytosis Is this a current diagnosis for this admission?: Yes - Assessment Summary: Patient is a 24-year-old white male with history of smoking, substance abuse, IV drug abuse, who presented to the emergency department with a 10-day history of abdominal pain nausea vomiting irregular bowel movements with blood in his stool. CT scan of the abdomen and pelvis revealed findings consistent with:, And colitis of the descending and sigmoid colon. He was admitted to the surgical list service for rehydration and intravenous antibiotics. Due to poor peripheral access, IV access became a problem. Eventually patient was switched over to p.o. Flagyl. His leukocytosis improved as did his hydration status and symptoms. He did however continue to have a dilated colon on plain film. By the with hospital day the patient was felt to receive maximum benefit of hos pitalization was discharged home. Thorough discussion was held with the patient regarding need for further evaluation of his:, Specifically colonoscopy, after the acute process subsides. Patient's bacterial and viral stool studies were negative as was his Covid status. Due to patient's social situation, and no payer source, patient compliance with the recommended plan may be successful. He will be sent home on p.o. Flagyl and a modified diet. - Additional Information Discharge Diet: Clear Liquids Discharge Activity: Activity As Tolerated, Balance Activity w/Rest Referrals: [facility] [Provider Group] - 02/21/20 2:15 pm (WITH DR. WHITESIDE ) Home Medications: No Home Medications 02/10/20 Additional Information: Patient be discharged home, follow-up [facility], in 1 to 2 weeks. He will take p.o. Flagyl as prescribed. History of Present Illiness History of Present Illness: SIMON CHRIS is a 24 year old male Presents emergency department with a 10-day history of abdominal pain bloating, nausea vomiting diarrhea or bloody stools. He denies previous episodes. Patient has a remote history of congenital spinal deformity, meningocele, ostomy and colostomy takedown performed at [facility]. Patient has had intermittent problems with constipation alternating with diarrhea over the last several years. He denies colonoscopy as an adult. He seen in the emergency department was found to have abdominal distention with bloating, nonlocalized abdominal tenderness, leukocytosis of 26,000, and acute abdominal series showing gas in the small and large bowel with luminal dilatation. CT scan of the abdomen limited oral contrast shows colonic wall thickening involving the descending and sigmoid colon. No free air no intra-abdominal fluid. Surgery was consulted, patient advised admission for further hydration, stool evaluation, and IV antibiotic therapy Physical Exam Vital Signs: Temp Pulse Resp BP Pulse Ox 97.8 F 86 16 107/59 L 95 02/12/20 09:39 02/12/20 07:43 02/12/20 07:43 02/12/20 07:43 02/12/20 07:43 Intake & Output 02/11/20 02/12/20 02/13/20 06:59 06:59 06:59 Intake Total 2868 2880 Balance 2868 2880 Weight 63.5 kg 63.5 kg Results Laboratory Results: WBC 15.0 10^3/uL (4.0-10.5) H 02/11/20 09:30 RBC 4.83 10^6/uL (4.35-5.55) 02/11/20 09:30 Hgb 15.0 g/dL (13.5-17.0) D 02/11/20 09:30 Hct 43.2 % (37.9-51.0) 02/11/20 09:30 MCV 90 fl (80-97) 02/11/20 09:30 MCH 31.0 pg (27.0-33.4) 02/11/20 09:30 MCHC 34.6 g/dL (32.0-36.0) 02/11/20 09:30 RDW 13.8 % (11.5-14.0) 02/11/20 09:30 Plt Count 294 10^3/uL (150-450) 02/11/20 09:30 Lymph % (Auto) Not Reportable 02/11/20 09:30 [place] % (Auto) Not Reportable 02/11/20 09:30 Eos % (Auto) Not Reportable 02/11/20 09:30 Baso % (Auto) Not Reportable 02/11/20 09:30 Absolute Neuts (auto) Not Reportable 02/11/20 09:30 Absolute Lymphs (auto) Not Reportable 02/11/20 09:30 Absolute Monos (auto) Not Reportable 02/11/20 09:30 Absolute Eos (auto) Not Reportable 02/11/20 09:30 Absolute Basos (auto) Not Reportable 02/11/20 09:30 Total Counted 100 02/11/20 09:30 Seg Neutrophils % Not Reportable 02/11/20 09:30 Seg Neuts % (Manual) 58 % (42-78) 02/11/20 09:30 Band Neutrophils % 1 % (3-5) L 02/11/20 09:30 Lymphocytes % (Manual) 32 % (13-45) 02/11/20 09:30 Monocytes % (Manual) 7 % (3-13) 02/11/20 09:30 Eosinophils % (Manual) 2 % (0-6) 02/11/20 09:30 Basophils % (Manual) 0 % (0-2) 02/11/20 09:30 Abs Neuts (Manual) 8.9 10^3/uL (1.7-8.2) H 02/11/20 09:30 Abs Lymphs (Manual) 4.8 10^3/uL (0.5-4.7) H 02/11/20 09:30 Abs Monocytes (Manual) 1.1 10^3/uL (0.1-1.4) 02/11/20 09:30 Absolute Eos (Manual) 0.3 10^3/uL (0.0-0.6) 02/11/20 09:30 Abs Basophils (Manual) 0.0 10^3/uL (0.0-0.2) 02/11/20 09:30 Clumped Platelets PRESENT 02/09/20 14:29 Platelet Comment ADEQUATE 02/11/20 09:30 RBC Morph Comment NORMO-CYTIC/CHROMIC 02/11/20 09:30 Sodium 127.3 mmol/L (137-145) L 02/11/20 09:30 Potassium 4.2 mmol/L (3.6-5.0) 02/11/20 09:30 Chloride 91 mmol/L (98-107) L 02/11/20 09:30 Carbon Dioxide 27 mmol/L (22-30) 02/11/20 09:30 Anion Gap 9 (5-19) 02/11/20 09:30 BUN 4 mg/dL (7-20) L 02/11/20 09:30 Creatinine 0.46 mg/dL (0.52-1.25) L 02/11/20 09:30 Est GFR ( Amer) > 60 (>60) 02/11/20 09:30 Est GFR (MDRD) Non-Af > 60 (>60) 02/11/20 09:30 Glucose 84 mg/dL (75-110) 02/11/20 09:30 Calcium 8.5 mg/dL (8.4-10.2) 02/11/20 09:30 Total Bilirubin 0.4 mg/dL (0.2-1.3) 02/11/20 09:30 Direct Bilirubin 0.1 mg/dL (0.0-0.4) 02/11/20 09:30 Neonat Total Bilirubin Not Reportable 02/11/20 09:30 Neonat Direct Bilirubin Not Reportable 02/11/20 09:30 Neonat Indirect Bili Not Reportable 02/11/20 09:30 AST 47 U/L (17-59) 02/11/20 09:30 ALT 38 U/L (<50) 02/11/20 09:30 Alkaline Phosphatase 95 U/L (38-126) 02/11/20 09:30 Total Protein 6.1 g/dL (6.3-8.2) L 02/11/20 09:30 Albumin 3.3 g/dL (3.5-5.0) L 02/11/20 09:30 Lipase 78.4 U/L (23-300) 02/09/20 17:45 Urine Color YELLOW 02/09/20 19:10 Urine Appearance CLEAR 02/09/20 19:10 Urine pH 6.0 (5.0-9.0) 02/09/20 19:10 Ur Specific Grandy 1.013 02/09/20 19:10 Urine Protein NEGATIVE mg/dL (NEGATIVE) 02/09/20 19:10 Urine Glucose (UA) NEGATIVE mg/dL (NEGATIVE) 02/09/20 19:10 Urine Ketones NEGATIVE mg/dL (NEGATIVE) 02/09/20 19:10 Urine Blood NEGATIVE (NEGATIVE) 02/09/20 19:10 Urine Nitrite NEGATIVE (NEGATIVE) 02/09/20 19:10 Urine Bilirubin NEGATIVE (NEGATIVE) 02/09/20 19:10 Urine Urobilinogen 2.0 mg/dL (<2.0) H 02/09/20 19:10 Ur Leukocyte Esterase NEGATIVE (NEGATIVE) 02/09/20 19:10 Urine WBC (Auto) 7 /HPF 02/09/20 19:10 Urine RBC (Auto) 0 /HPF 02/09/20 19:10 Squamous Epi Cells Auto 1 /HPF 02/09/20 19:10 Urine Mucus (Auto) RARE /LPF 02/09/20 19:10 Urine Ascorbic Acid 40 (NEGATIVE) H 02/09/20 19:10 Stl C. Difficile GDH Ag NEGATIVE (NEGATIVE) 02/09/20 19:10 Stl C.difficile Tox A&B NEGATIVE (NEGATIVE) 02/09/20 19:10 Urine Opiates Screen NEGATIVE 02/09/20 19:10 Urine Methadone Screen NEGATIVE 02/09/20 19:10 Ur Barbiturates Screen NEGATIVE 02/09/20 19:10 Ur Phencyclidine Scrn NEGATIVE 02/09/20 19:10 Ur Amphetamines Screen NEGATIVE 02/09/20 19:10 U Benzodiazepines Scrn NEGATIVE 02/09/20 19:10 Urine Cocaine Screen NEGATIVE 02/09/20 19:10 U Marijuana (THC) Screen UNCONFIRMED POSITIVE 02/09/20 19:10 Influenza A (RT-PCR) NEGATIVE (NEGATIVE) 02/09/20 19:10 Influenza B (RT-PCR) NEGATIVE (NEGATIVE) 02/09/20 19:10 RSV (RT-PCR) NEGATIVE (NEGATIVE) 02/09/20 19:10 SARS-CoV-2 Rap RNA(RT-PCR) NEGATIVE (NEGATIVE) 02/09/20 19:10 Impressions: KUB X-Ray 02/09/20 13:03 IMPRESSION: Multiple dilated bowel loops, largely appear to be colon measuring up to 10 cm in the splenic flexure. The descending colon appears smoothly contoured which is abnormal. Consider surgical consultation and CT evaluation. Abdomen/Pelvis CT 02/09/20 17:30 IMPRESSION: Moderate wall thickening throughout the descending and sigmoid colon measuring up to 1 cm. The proximal colon is dilated measuring up to 11 cm in diameter. No small bowel dilatation or wall thickening. No free fluid. KUB X-Ray 02/11/20 00:00 IMPRESSION: Persisting colonic distention but improved when compared to prior study. Stroke Is this a Stroke Patient?: No Acute Heart Failure Is this a Heart Failure Patient?: No
[2020-02-12 13:18] VITALS: BP 128/83
== END 2020-02-12 13:02 | disposition home or self-care (01) | DRG 392 ==
LOC: ER 11:24 → EH 19:34 → 4W 22:03
PROVIDERS: ATTEND Emergency Medicine
PROC: 05HQ33Z Insertion of Infusion Device into Left External Jugular Vein, Percutaneous Approach (ICD-10-PCS; principal; 2020-02-09)
DX: K52.9 Noninfective gastroenteritis and colitis, unspecified (principal); F17.200 Nicotine dependence, unspecified, uncomplicated; R19.7 Diarrhea, unspecified; E86.0 Dehydration; D72.829 Elevated white blood cell count, unspecified; F19.11 Other psychoactive substance abuse, in remission; F90.9 Attention-deficit hyperactivity disorder, unspecified type; Z11.59 Encounter for screening for other viral diseases; Z79.899 Other long term (current) drug therapy; Z88.0 Allergy status to penicillin
CPT/HCPCS: 36415; 74018; 74177; 80053; 80307; 81001; 83690; 85025; 87040; 87045; 87205; 87324; 87449; 93005; 93010; 96361; 96374; 99285; 0241U; C9803; J2405; J3490; J7030; J7060; J7120

== ENCOUNTER 2020-02-17 19:52 | Emergency (ER) | payer SELFPAY ==
--- NOTE | 2020-02-17 21:21 | ER Document Report ---
ED Medical Screen (RME) - General Chief Complaint: Leg Pain Stated Complaint: DIARRHEA/LEG PAIN Time Seen by Provider: 02/17/20 21:13 Mode of Arrival: Ambulatory Information source: Patient Notes: 24-year-old presents to ED for complaint of diarrhea x3 weeks. He states he was seen last week and diagnosed with colitis he was in the hospital for 3 days he is on Flagyl. He states he was told to stay on a clear liquid diet but he has not been able eat for 3 weeks and now he cannot keep food down and is not been on a clear liquid diet. Patient states he does smoke a pack a day drinks weekly and does use marijuana. 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 A comprehensive ED assessment and evaluation of the patient, analysis of test results and completion of medical decision making process will be conducted by an additional ED providers. TRAVEL OUTSIDE OF THE [place] 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
--- NOTE | 2020-02-17 22:04 | ER Document Report ---
ED General - General Chief Complaint: Diarrhea Stated Complaint: DIARRHEA/LEG PAIN Time Seen by Provider: 02/17/20 21:13 Mode of Arrival: Ambulatory Information source: Patient Notes: 24-year-old man presents to the emergency department with a 2-day history of swelling in the lower extremities. He states that he awoke on Tuesday morning if and his feet are swollen he cannot get his shoes on. He also complains of pain and tenderness in the lower extremity with swelling. He elevated his feet and found that the swelling did decrease some as soon as he lower his legs the swelling recurred. Is presently taking Flagyl for a colitis and diarrhea. He was in the hospital for approximately 5 days for treatment of colitis and diarrhea. He denies any prior history of similar episodes. TRAVEL OUTSIDE OF THE [place] IN LAST 30 DAYS: No - Related Data Allergies/Adverse Reactions: amoxicillin [Amoxicillin] Allergy (Verified 02/09/20 11:58) Hives Penicillins Allergy (Verified 02/09/20 11:58) Home Medications: Flagyl Past Medical History - General Information source: Patient - Social History Smoking Status: Current Every Day Smoker Drug Abuse: Marijuana Family History: None, Reviewed & Not Pertinent Patient has homicidal ideation: No Renal/ Medical History: Denies: Hx Peritoneal Dialysis Psychiatric Medical History: Reports: Hx Attention Deficit Hyperactivity Disorder Denies: Hx Depression Past Surgical History: Reports: Hx Colostomy - Colostomy with reversal, Hx Neurologic Surgery - 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 HENT: Negative for sore throat. Eyes: Negative for visual changes. Cardiovascular: Negative for chest pain. Respiratory: Negative for shortness of breath. Gastrointestinal: Negative for abdominal pain, vomiting or diarrhea. Genitourinary: Negative for dysuria. Musculoskeletal: See HPI Skin: Negative for rash. Neurological: Negative for headaches, weakness or numbness. 10 point ROS negative except as marked above and in HPI. Physical Exam - Vital signs Vitals: Temp Pulse Resp BP Pulse Ox 98.8 F 111 H 18 114/72 100 02/17/20 20:36 02/17/20 20:36 02/17/20 20:36 02/17/20 20:36 02/17/20 20:36 - Notes Notes: PHYSICAL EXAMINATION: Physical Exam: General: Well-nourished well-developed in no acute distress HEENT: NC/AT, pupils equal round and reactive to light, MM moist,nares clear, oropharynx clear, airway patent Neck: supple, no adenopathy, no masses. Good range of motion Lungs: clear, no wheezing, no rales no rhonchi CVS: Regular rate and rhythm no murmur gallop or rub Abdomen: Soft, active, nontender, no masses, no hepatosplenomegaly Ext: Bilateral lower extremity edema with swelling of the feet. Neuro: Alert and responsive, moving all 4 extremities on command, cranial nerves intact, no focal findings Skin: Intact no open lesions, no rash PSYCH: Normal mood, normal affect. Course - Vital Signs Vital signs: Temp Pulse Resp BP Pulse Ox 98.8 F 111 H 18 114/72 100 02/17/20 20:36 02/17/20 20:36 02/17/20 20:36 02/17/20 20:36 02/17/20 20:36 - Laboratory Result Diagrams: 02/17/20 21:45 02/17/20 21:45 Laboratory results interpreted by me: 02/17/20 02/17/20 02/17/20 21:45 21:45 22:25 RBC 4.30 L RDW 14.1 H Plt Count 508 H Monocytes % (Manual) 14 H Sodium 134.6 L Anion Gap 3 L BUN 3 L Creatinine 0.40 L Calcium 8.3 L Creatine Kinase 40 L Total Protein 5.6 L Albumin 3.0 L Ur Leukocyte Esterase TRACE H Discharge - Discharge Clinical Impression: Edema, peripheral, Diarrhea Condition: Good Disposition: HOME, SELF-CARE Instructions: Edema, Peripheral ([facility]) Additional Instructions: You were seen in the emergency department tonight with swelling in your lower extremities. Lab data reveals that your albumin and total protein are low. Please increase your protein intake and increase your fluid intake. Wear the support hose daily, elevate your feet, use the fluid medication as prescribed. Please follow-up with your primary care doctor as needed. If your symptoms are worsening or if you have other concerns you may return to the emergency department for further evaluation and treatment HOME CARE INSTRUCTIONS & INFORMATION: Thank you for choosing us for your medical needs. We hope you're satisfied with the care you received. After you leave, you must properly care for your problem and, at the same time, observe its progress. Any condition can change. Some illnesses can change rapidly over hours or days. If your condition worsens, return to the Emergency Department or see your physician promptly. ABOUT YOUR X-RAYS AND EKG'S: If you had an EKG or X-rays taken, they have been read by the Emergency Physician. The X-rays and EKG's will also be read by a Radiologist or Orthotic/Prosthetic Practitioner within 24 hours. If discrepancies are noted, you will be notified by telephone. Please be certain the ED has a correct telephone number & address where you can be reached. Also, realize that some fractures or abnormalities do not show up on initial X-rays. If your symptoms continue, see your physician. ABOUT YOUR LABORATORY TEST: If you had laboratory tests, the results have been reviewed by the Emergency Physician. Some test results (for example cultures) may not be available for several days. You will be contacted if any test result shows you need additional treatment. Please be certain the ED has a correct telephone number and address where you can be reached. ABOUT YOUR MEDICATIONS: You will receive instructions on how to take your medicine on the prescription label you receive. Additional information may be provided by the Pharmacy. If you have questions afterwards, call the ED for clarification or further instructions. Some prescribed medications may cause drowsiness. Do not perform tasks such as driving a car or operating machinery without consulting your Pharmacist. If you feel you need a refill of pain medication, your condition will need re-evaluation. Please do not call for a refill of any medication. ABOUT YOUR SIGNATURE: Signature of this document acknowledges to followin. Understanding that you received emergency treatment and that you may be released before al medical problems are known or treated. Please be certain the ED has a correct phone number & address where you can be reached. 2. Acknowledgement that you will arrange for follow-up care as recommended. 3. Authorization for the Emergency Physician to provide information to your follow-up Physician in order to maximize your care. AT ANY TIME, IF YOUR SYMPTOMS CHANGE SIGNIFICANTLY OR WORSEN OR YOU DEVELOP NEW SYMPTOMS, RETURN TO THE EMERGENCY DEPARTMENT IMMEDIATELY FOR RE-EVALUATION. OUR GOAL IS TO PROVIDE EXCELLENT MEDICAL CARE! WE HOPE THAT WE HAVE MET YOUR EXPECTATIONS DURING YOUR EMERGENCY DEPARTMENT VISIT AND THAT YOU FEEL YOU HAVE RECEIVED EXCELLENT CARE! Prescriptions: Furosemide [Lasix 20 mg Tablet] 20 mg PO QAM #10 tablet
[2020-02-17 22:15] LABS: HEMATOCRIT 39.9 % (37.9-51.0); HEMOGLOBIN 13.9 g/dL (13.5-17.0); MEAN CORPUSCULAR HEMOGLOBIN 32.3 pg (27.0-33.4); MEAN CORPUSCULAR HGB CONC 34.8 g/dL (32.0-36.0); MEAN CORPUSCULAR VOLUME 93 fl (80-97); PLATELET COUNT 508 10^3/uL (150-450); RED CELL DISTRIBUTION WIDTH 14.1 % (11.5-14.0); WHITE BLOOD COUNT 7.3 10^3/uL (4.0-10.5)
[2020-02-17 22:46] LABS: ALKALINE PHOSPHATASE 65 U/L (38-126); ASPARTATE AMINO TRANSFERASE 20 U/L (17-59); BILIRUBIN,DIRECT 0.1 mg/dL (0.0-0.4); BILIRUBIN,TOTAL 0.3 mg/dL (0.2-1.3); BLOOD UREA NITROGEN 3 mg/dL (7-20); CALCIUM 8.3 mg/dL (8.4-10.2); CARBON DIOXIDE 27 mmol/L (22-30); CHLORIDE 105 mmol/L (98-107); CREATINE KINASE 40 U/L (55-170); GLUCOSE 78 mg/dL (75-110); POTASSIUM 4.3 mmol/L (3.6-5.0); TOTAL PROTEIN 5.6 g/dL (6.3-8.2)
[2020-02-17 22:47] LABS: ANION GAP 3 (5-19)
[2020-02-17 22:48] LABS: APPEARANCE,URINE CLEAR; BILIRUBIN,URINE NEGATIVE (NEGATIVE); COLOR,URINE YELLOW; GLUCOSE, URINE NEGATIVE (NEGATIVE); KETONES,URINE NEGATIVE (NEGATIVE); LEUKOCYTE ESTERASE,URINE TRACE (NEGATIVE); NITRITE,URINE NEGATIVE (NEGATIVE); PROTEIN,URINE NEGATIVE (NEGATIVE); URINE SPECIFIC GRAVITY 1.011; UROBILINOGEN,URINE NEGATIVE mg/dL (<2.0)
[2020-02-17 22:57] LABS: ABSOLUTE LYMPHOCYTES# (MANUAL) 2.5 10^3/uL (0.5-4.7); BASOPHILS % (MANUAL) 1 % (0-2); EOSINOPHILS % (MANUAL) 5 % (0-6); LYMPHOCYTES % (MANUAL) 34 % (13-45); MONOCYTES % (MANUAL) 14 % (3-13); SEGMENTED NEUTROPHILS % (MAN) 46 % (42-78); TOTAL CELLS COUNTED 100
[2020-02-17 22:58] LABS: ANISOCYTOSIS SLIGHT; PLATELET COMMENT ADEQUATE; POIKILOCYTOSIS SLIGHT; TEAR DROP CELLS SLIGHT; TOXIC GRANULATION 1+
[2020-02-17] MEDS ORDERED: FUROSEMIDE INJ/PF 20 MG/2 ML SDV IV ONE (23:34)
[2020-02-18 00:18] VITALS: BP 115/80
== END 2020-02-18 00:17 | disposition home or self-care (01) ==
LOC: ER 19:52
DX: R60.9 Edema, unspecified (principal); R19.7 Diarrhea, unspecified; F17.200 Nicotine dependence, unspecified, uncomplicated
CPT/HCPCS: 99284; 96374; 36415; 87086; 82550; 85025; 80053; 81001; J1940